=== PATIENT | male | born 1985 | race Caucasian/White ===

== ENCOUNTER 2017-10-17 04:37 | Emergency (ER) | payer OTHER ==
--- NOTE | 2017-10-17 04:59 | ED CARDIAC/CP/PALPITATIONS ---
See Addendum History of Present Illness General Chief Complaint: Chest Pain Stated Complaint: PT C/C DIFF BREATHING AND CHEST PAIN X;S 20 MIN Source: patient Exam Limitations: no limitations Vital Signs & Intake/Output Vital Signs & Intake/Output Vital Signs Date Time Temp Pulse Resp B/P B/P Pulse O2 O2 Flow FiO2 Mean Ox Delivery Rate 10/17 0623 70 18 129/75 98 Room Air 10/17 0544 76 96 Room Air 10/17 0452 92 24 145/98 90 Room Air Allergies Coded Allergies: No Known Allergies (10/17/17) Triage Note: PT C/O CHEST PAIN AND TIGHTNESS THAT STARTED APPROX 20 MIN AGO. PAIN WORSE WITH TAKING DEEP BREATH. CP IN CENTER OF CHEST RADIATING TO SPINE. PT APPEARS TO BE VERY UNCOMFORTABLE IN TRIAGE. Triage Nurses Notes Reviewed? yes Onset: Abrupt Duration: minute(s):, constant, continues in ED, getting worse Quality/Severity: severe, sharp, twisting Location: right parasternal HPI: Patient presents for evaluation of sudden onset of severe constant right chest pain and shortness of breath that began prior to arrival. Patient states he was simply lying in bed but wasn't asleep at onset. The pain worsens with deep breathing and movement and coughing. Patient denies any associated fever or cold symptoms injury or prior episodes. He hasn't tried any medication for this. Past History Travel History Traveled to [place] past 21 day No Medical History Any Pertinent Medical History? see below for history Neurological: NONE EENT: NONE Cardiovascular: NONE Respiratory: NONE Gastrointestinal: NONE Hepatic: NONE Renal: NONE Musculoskeletal: NONE Psychiatric: NONE Endocrine: NONE Blood Disorders: NONE Cancer(s): NONE BIG DATA LEAD/Reproductive: NONE Surgical History Surgical History: non-contributory Psychosocial History What is your primary language Somali Tobacco Use: Current Daily Use Daily Tobacco Use Amount/Type: => 5 Cigarettes daily ETOH Use: denies use Family History Hx Contributory? No Review of Systems Review of Systems Constitutional: Reports: no symptoms. EENTM: Reports: no symptoms. Respiratory: Reports: see HPI. Cardiovascular: Reports: see HPI. GI: Reports: no symptoms. Genitourinary: Reports: no symptoms. Musculoskeletal: Reports: no symptoms. Skin: Reports: no symptoms. Neurological/Psychological: Reports: no symptoms. Hematologic/Endocrine: Reports: no symptoms. Immunologic/Allergic: Reports: no symptoms. All Other Systems: Reviewed and Negative Physical Exam Physical Exam Cardiovascular: see below Comments: Gen.: Well-nourished, well-developed, moderate respiratory distress. Head: Normocephalic, atraumatic. Eyes: Normal inspection bilaterally Ears: Normal inspection bilaterally Nose: Normal inspection Throat/mouth : Moist mucosa Neck: Supple, full range of motion, no goiter Heart: Regular rate and rhythm, no murmurs rubs or gallops Lungs: Decreased breath sounds over the right chest Chest: Nontender Back: Normal range of motion Abdomen: Soft, nontender, nondistended, normal bowel sounds Extremities: Normal range of motion grossly, equal radial pulses, no cyanosis clubbing or edema Neurologic: Cranial nerves grossly intact, speech is clear Skin: warm and dry Psychiatric: Calm, cooperative, no apparent delusions or hallucinations Core Measures ACS in differential dx? No CVA/TIA Diagnosis No Sepsis Present: No Sepsis Focused Exam Completed? No Progress Differential Diagnosis: pNEUMOTHORAX, EFFUSION, INFILTRATE Plan of Care: Orders Procedure Date/time Status EKG 10/17 0439 Active Initial ED EKG: NSR, rate (86), no ST T wave changes Comments: 10/17/2017 5:38:57 AM thoracic vent placed uneventfully. Patient is beginning to feel better. 10/17/2017 6:46:49 AM although patient had pain after placement of the thoracic vent catheter, the pain is starting to settle down. I suspect that the patient was experiencing irritation of the parietal pleura with reexpansion of the lung and shifting of the catheter. Departure Departure Disposition: HOME OR SELF CARE Condition: Stable Clinical Impression Primary Impression: Pneumothorax, right Referrals: Zita MARTIN,Moiz Sena (PCP/Family) Pradeep Russell MD,Herson Hobbs Additional Instructions: Follow-up with Dr. Fernández for reevaluation of your lung collapse. Notify your primary care physician of this emergency department visit and treatment plan. Return if any concerns or sudden worsening. Thank you for choosing the [facility] Emergency Department for your care. It was a pleasure to serve you today. Charbel Bojorquez M.D. [facility] Departure Forms: Customer Survey General Discharge Information Prescriptions: Current Visit Scripts Diclofenac Sodium 1 TAB PO BID PRN PAIN #14 TAB Tramadol HCl (Ultram) 1-2 TAB PO Q6P PRN PAIN #20 TAB Critical Care Note Critical Care Note Critical Care Time: 30-74 min
--- NOTE | 2017-10-17 05:24 | RADIOLOGY REPORT ---
EXAMINATION: XR PORTABLE CHEST CLINICAL INFORMATION: Right chest pain, decreased breath sounds COMPARISON: None TECHNIQUE: Portable frontal view of the chest was obtained. FINDINGS: There is a moderate to large right-sided pneumothorax with retraction of the lung towards the hilum. The left lung is well-expanded and clear. No evidence of left pneumothorax. No evidence of pleural effusion. The cardiomediastinal contour is unremarkable. No significant mediastinal shift is seen, though the right hemithorax appears slightly expanded relative to the left which could reflect developing tension. No acute osseous findings are seen. IMPRESSION: Moderate to large right pneumothorax; developing tension cannot be excluded. This critical result was discussed with Charbel Bojorquez on 10/17/2017 5:19 AM, and it was ascertained that the content and urgency of the report was understood at the time of direct communication.
[2017-10-17 06:23] VITALS: BP 129/75
--- NOTE | 2017-10-17 06:41 | RADIOLOGY REPORT ---
EXAMINATION: XR CHEST CLINICAL INFORMATION: Status post right thoracic vent placement COMPARISON: Chest x-ray from earlier today TECHNIQUE: 2 views of the chest were obtained. FINDINGS: Chest tube catheter overlies the mid to upper right hemithorax. There is a residual small to moderate right pneumothorax, decreased from prior with partial reexpansion of the right lung. Linear opacity in the right midlung favors atelectasis. The left lung remains well expanded and clear. No evidence of pleural effusion. The cardiomediastinal contour is unremarkable. No acute osseous findings are seen. IMPRESSION: Residual small to moderate right pneumothorax with improved right lung aeration.
[2017-10-17] MEDS ORDERED: DICLOFENAC SODI75 M2 PO (06:52)
[2017-10-17] MEDS ORDERED: ULTRAM50 M1 PO (06:52)
[2017-10-17] MEDS ORDERED: PERCOCET 5-3251 EACH PO (07:07)
== END 2017-10-17 07:11 ==
LOC: ERH 04:37
DX: J93.9 Pneumothorax, unspecified (principal); F17.210 Nicotine dependence, cigarettes, uncomplicated; R07.9 Chest pain, unspecified
CPT/HCPCS: 32551; 71045; 71046; 93005; 93010; 96372; 99291